=== PATIENT | male | born 1990 | race Caucasian/White ===

== ENCOUNTER 2017-03-01 15:03 | Emergency (ER) | payer OTHER ==
[~2017-03-01] VITALS: Ht 165.1 cm; Wt 99.8 kg
== END 2017-03-01 19:39 | disposition home or self-care (01) ==
LOC: ER 15:03
DX: S60.221A Contusion of right hand, initial encounter (principal); W22.8XXA Striking against or struck by other objects, initial encounter; Y93.89 Activity, other specified; Y92.098 Other place in other non-institutional residence as the place of occurrence of the external cause; Y99.8 Other external cause status; L03.113 Cellulitis of right upper limb

== ENCOUNTER 2017-03-21 17:04 | Emergency (ER) | payer OTHER ==
[~2017-03-21] VITALS: Ht 162.6 cm; Wt 90.7 kg
== END 2017-03-21 20:17 | disposition home or self-care (01) ==
LOC: ER 17:04
DX: L03.011 Cellulitis of right finger (principal)

== ENCOUNTER 2018-01-23 14:40 | Emergency (ER) | payer OTHER ==
[~2018-01-23] VITALS: Ht 177.8 cm; Wt 88.5 kg
== END 2018-01-23 15:14 | disposition home or self-care (01) ==
LOC: ER 14:40
DX: J03.90 Acute tonsillitis, unspecified (principal)